=== PATIENT | female | born 1960 | race African-American/Black ===

== ENCOUNTER → 2018-03-26 | Outpatient (CLI) | payer OTHER ==
[~2018-03-26] MED LIST: AZITHROMYCIN250 MG1 PO; FOLIC ACID1 MG PO; PRAVASTATIN SOD10 MG PO; TYLENOL EXTRA500 MG PO; VITAMIN B-1100 MG PO
== END | disposition home or self-care (01) ==
LOC: CDC 14:56
DX: Z01.810 Encounter for preprocedural cardiovascular examination (principal); M67.432 Ganglion, left wrist; M25.532 Pain in left wrist; R94.31 Abnormal electrocardiogram [ECG] [EKG]
CPT/HCPCS: 93000